=== PATIENT | female | born 1960 | race Caucasian/White ===

== ENCOUNTER 2019-12-20 17:58 | Inpatient (IN) | payer BC ==
--- OUTSIDE RECORDS SUMMARY | 2019-12-20 18:02 | XMS REPORT ---
:1960 Author Organization [employer]Works Care Team Providers Name Role Phone Coffey, Na Provider Role Unavailable Allergies No Known Allergies Problems Problem Type Condition Code Onset Dates Condition Statu s Problem Acute bronchitis J20.9 Active Problem Annual physical exam Z00.00 Active Problem Allergic rhinitis J30.9 Active Problem Seasonal allergic rhinitis due to J30.1 Active pollen Problem Actinic keratosis L57.0 Active Problem Fatigue, unspecified type R53.83 Ac tive Medications No Known Medications Results No Known Results Summary Purpose eClinicalWorks Submission
--- OUTSIDE RECORDS SUMMARY | 2019-12-20 18:03 | XMS REPORT ---
:1960 Author Organization [employer] Care Team Providers Name Role Phone Coffey, Na Provider Role Unavailable Allergies No Known Allergies Problems Problem Type Condition Code Onset Dates Condition Statu s Problem Allergic rhinitis J30.9 Active Problem Acute bronchitis J20.9 Active Problem Non-seasonal allergic rhinitis, J30.89 Active unspecified trigger Problem Fatigue, unspecified type R53.83 Ac tive Problem Seasonal allergic rhinitis due to J30.1 Active pollen Problem Annual physical exam Z00.00 Active Problem Actinic keratosis L57.0 Active Medications No Known Medications Results No Known Results Summary Purpose eClinicalWorks Submission
--- OUTSIDE RECORDS SUMMARY | 2019-12-20 18:03 | XMS REPORT ---
:1960 Author Organization [employer] Care Team Providers Name Role Phone Coffey, Na Provider Role Unavailable Allergies, Adverse Reactions, Alerts Substance Reaction Event Type codeine Info Not Available Drug Allergy PCN Info Not Available Drug Allergy Problems Problem Type Condition Code Onset Dates Condition Statu s Assessment Fatigue, unspecified type R53.83 Ac tive Assessment Annual physical exam Z00.00 Active Assessment Non-seasonal allergic rhinitis, J30.89 Active unspecified trigger Problem Allergic rhinitis J30.9 Active Problem Acute bronchitis J20.9 Active Problem Non-seasonal allergic rhinitis, J30.89 Active unspecified trigger Problem Fatigue, unspecified type R53.83 Ac tive Problem Seasonal allergic rhinitis due to J30.1 Active pollen Problem Annual physical exam Z00.00 Active Problem Actinic keratosis L57.0 Active Medications Medication Code Code Instructions Start End Status Dosage System Date Date Medrol [facility] 87370089264 4 MG Orally Active 1 tablet with food or milk in the morning Multivitamin [facility] [address] Active not Adults 50+ defined Vitamin C [facility] [address]-84 Active not defined Vitamin D [facility] [address]-73 Active not defined Resveratrol ND 71021159660 - Orally Active as Ultra directed Flonase ND 35180076478 50 MCG/ACT Active 1 spray i n Nasally Once a each day nostril Biotin [facility] [address]45-[address]248 Active not defined Restasis [facility] [address]-32 Active not defined Naproxen ND 10421820650 500 MG Orally Active 1 tab let every 12 hrs with food or milk as needed Vitamin B12 [facility] 27389-[address]75 Active not defined Lysine [facility] [address]-64 Active not defined Ubiquinol [facility] [address]-21 Active not defined Citracal Plus [facility] 47[address] Active not defined Benzonatate ND 14838843052 200 MG Orally Jul 12, Active 1 capsule Three times a 2017 Claritin [facility] 74621491913 5 MG Orally Active 1 table t twice daily Fish Oil [facility] 96567277636 1000 MG Orally Active 1 ca psule Once a day Results No Known Results Summary Purpose eClinicalWorks Submission
--- NOTE | 2019-12-20 19:55 | EDPHYS ---
Physician Documentation [facility] Name: Ruth Ann Steve Age: 59 yrs Sex: Female : 1960 Arrival Date: 12/20/2019 Time: 18:00 Bed 16 Private MD: Chantel Coffey ED Physician Jimmy Nunez HPI: 12/19 19:06 This 59 yrs old Female presents to ER via Ambulatory with complaints of klaus Breast Problem. 19:06 The patient presents with an abscess of the left breast. Description: The affected area klaus is moderate sized, localized, erythematous. Onset: The symptoms/episode began/occurred 2 day(s) ago. Associated signs and symptoms: The patient has no apparent associated signs or symptoms. Modifying factors: the symptoms are alleviated by nothing, the symptoms are aggravated by nothing. Severity of symptoms: At their worst the symptoms were moderate, in the emergency department the symptoms are unchanged. The patient has not experienced similar symptoms in the past. Historical: - Allergies: 18:17 PENICILLINS; ll1 - PMHx: 18:17 gastritis; ll1 - PSHx: 18:17 neck surgery C6-C7; ll1 - Immunization history:: Adult Immunizations up to date. - Social history:: Smoking status: Patient denies any tobacco usage or history of. Patient uses alcohol, weekly. Patient/guardian denies using street drugs. - Family history:: not pertinent. ROS: 19:06 Constitutional: Negative for fever, chills, and weight loss, Eyes: Negative for injury, klaus pain, redness, and discharge, ENT: Negative for injury, pain, and discharge, Neck: Negative for injury, pain, and swelling, Cardiovascular: Negative for chest pain, palpitations, and edema, Respiratory: Negative for shortness of breath, cough, wheezing, and pleuritic chest pain, Abdomen/GI: Negative for abdominal pain, nausea, vomiting, diarrhea, and constipation, Back: Negative for injury and pain, : Negative for injury, bleeding, discharge, and swelling, MS/Extremity: Negative for injury and deformity, Neuro: Negative for headache, weakness, numbness, tingling, and seizure, Psych: Negative for depression, anxiety, suicide ideation, homicidal ideation, and hallucinations, Allergy/Immunology: Negative for hives, rash, and allergies, Endocrine: Negative for neck swelling, polydipsia, polyuria, polyphagia, and marked weight changes, Hematologic/Lymphatic: Negative for swollen nodes, abnormal bleeding, and unusual bruising. 19:06 Skin: Positive for erythema, swelling, of the left breast. Exam: 19:08 Constitutional: This is a well developed, well nourished patient who is awake, alert, klaus and in no acute distress. Head/Face: Normocephalic, atraumatic. Eyes: Pupils equal round and reactive to light, extra-ocular motions intact. Lids and lashes normal. Conjunctiva and sclera are non-icteric and not injected. Cornea within normal limits. Periorbital areas with no swelling, redness, or edema. ENT: Nares patent. No nasal discharge, no septal abnormalities noted. Tympanic membranes are normal and external auditory canals are clear. Oropharynx with no redness, swelling, or masses, exudates, or evidence of obstruction, uvula midline. Mucous membranes moist. Neck: Trachea midline, no thyromegaly or masses palpated, and no cervical lymphadenopathy. Supple, full range of motion without nuchal rigidity, or vertebral point tenderness. No Meningismus. Cardiovascular: Regular rate and rhythm with a normal S1 and S2. No gallops, murmurs, or rubs. Normal PMI, no JVD. No pulse deficits. Respiratory: Lungs have equal breath sounds bilaterally, clear to auscultation and percussion. No rales, rhonchi or wheezes noted. No increased work of breathing, no retractions or nasal flaring. Abdomen/GI: Soft, non-tender, with normal bowel sounds. No distension or tympany. No guarding or rebound. No evidence of tenderness throughout. Back: No spinal tenderness. No costovertebral tenderness. Full range of motion. Skin: Warm, dry with normal turgor. Normal color with no rashes, no lesions, and no evidence of cellulitis. MS/ Extremity: Pulses equal, no cyanosis. Neurovascular intact. Full, normal range of motion. Neuro: Awake and alert, GCS 15, oriented to person, place, time, and situation. Cranial nerves II-XII grossly intact. Motor strength 5/5 in all extremities. Sensory grossly intact. Cerebellar exam normal. Normal gait. Psych: Awake, alert, with orientation to person, place and time. Behavior, mood, and affect are within normal limits. 19:08 Chest/axilla: Inspection: abscess, cellulitis, of the left breast Palpation: tenderness, Axilla: are normal, Breasts: abscess, that is moderate-sized, cellulitis, that is moderate, nipple discharge, is not appreciated, rash, is not appreciated, swelling, of the left breast. Vital Signs: 18:15 BP 130 / 78; Pulse 88; Resp 17; Temp 98.4; Pulse Ox 98% ; Pain 5/10; ll1 MDM: 18:06 Patient medically screened. [facility] 19:10 Differential diagnosis: abscess, cellulitis. Data reviewed: vital signs, nurses notes, [facility] lab test result(s), radiologic studies, plain films. Data interpreted: waterproofer: not applicable for this patient encounter. Pulse oximetry: on room air is 98 %. Test interpretation: by ED physician or midlevel provider: plain radiologic studies. Counseling: I had a detailed discussion with the patient and/or guardian regarding: the historical points, exam findings, and any diagnostic results supporting the discharge/admit diagnosis, lab results, the need for further work-up and treatment in the hospital. Physician consultation: Donald Fuller MD left breast cellulitis, abscess, will see in am, npo after midnight. 19:55 ED course: labs reviewed, dw dr hoffman and dr fuller, will admit to obs, dr carr with plan.[facility] 12/19 19:05 Order name: CBC with Diff; Complete Time: 20:11 [facility] 12/19 19:05 Order name: Comprehensive Metabolic Panel; Complete Time: 20:26 [facility] 12/19 20:23 Order name: Basic Metabolic Panel [facility] 12/19 20:23 Order name: Basic Metabolic Panel [facility] 12/19 20:23 Order name: CBC with Automated Diff [facility] 12/19 20:23 Order name: CBC with Automated Diff [facility] 12/19 19:05 Order name: Chest Single View XRAY; Complete Time: 20:11 [facility] 12/19 19:27 Order name: BREAST/AXILLA, COMPLETE [facility] 12/19 20:23 Order name: CONS Pharmacy Consult [facility] 12/19 20:23 Order name: CONS Pharmacy Consult [facility]ME 12/19 20:23 Order name: CONS Physician Consult [facility] 12/19 20:23 Order name: Heart Healthy EDME Administered Medications: 20:27 Drug: Zofran (Ondansetron) 4 mg Route: IVP; Site: right antecubital; vc 21:00 Follow up: Response: No adverse reaction vc 20:29 Drug: morphine 2 mg Route: IVP; Site: right antecubital; vc 20:35 Drug: Rocephin 1 grams Route: IV; Rate: per protocol; Site: right antecubital; vc 20:40 Drug: NS 0.9% 1000 ml Route: IV; Rate: 1 bolus; Site: right antecubital; vc 21:40 Follow up: IV Status: Completed infusion; IV Intake: 1000ml vc 20:41 Drug: Clindamycin 900 mg Route: IVPB; Infused Over: 30 mins; Site: right antecubital; vc Disposition: 12/20/19 19:55 Hospitalization ordered by Kristian Hoffman for Observation. Preliminary diagnosis is Cellulitis and acute lymphangitis of trunk - left breast abscess, cellulitis. - Bed requested for Telemetry/MedSurg (observation). - Status is Observation. vc - Condition is Stable. - Problem is new. - Symptoms have improved. Signatures: Dispatcher [employer] EDME Vernell Orozco RN RN mw Anderson, Corey, MD MD cha Therrien, Shelly, GRAVURE PRINTING MACHINIST-C GRAVURE PRINTING MACHINIST-Csnw Alice Mcfarland RN RN vc Lewis, Lynsay, RN RN ll1 Corrections: (The following items were deleted from the chart) 19:27 19:05 Extrmty [employer]+US.RAD.BRZ ordered. EDME EDMS 20:56 19:55 Hospitalization Ordered by Kristian Hoffman MD for Observation. Preliminary mw diagnosis is Cellulitis and acute lymphangitis of trunk - left breast abscess, cellulitis. Bed requested for Telemetry/MedSurg (observation). Status is Observation. Condition is Stable. Problem is new. Symptoms have improved. klaus 22:44 20:56 12/20/2019 19:55 Hospitalization Ordered by Kristian Hoffman MD for Observation. vc Preliminary diagnosis is Cellulitis and acute lymphangitis of trunk - left breast abscess, cellulitis. Bed requested for Telemetry/MedSurg (observation). Status is Observation. Condition is Stable. Problem is new. Symptoms have improved. mw
--- NOTE | 2019-12-20 19:55 | ER ---
Nurse's Notes [facility] Name: Ruth Ann Steve Age: 59 yrs Sex: Female : 1960 Arrival Date: 12/20/2019 Time: 18:00 Bed 16 Private MD: Chantel Coffey Diagnosis: Cellulitis and acute lymphangitis of trunk-left breast abscess, cellulitis Presentation: 12/19 18:15 Chief complaint: Patient states: Left breast pain, swelling, redness, and tenderness ll1 since last night. No known fever. Coronavirus screen: Proceed with normal triage. Patient denies a cough. Patient denies shortness of breath or difficulty breathing. Patient denies measured and/or subjective temperature greater than 100.4F prior to today's visit. Patient denies travel on a cruise ship or to a country the [facility] currently lists as an affected area. Patient denies contact with known and/or suspected case of COVID-19. Ebola Screen: Patient denies travel to an Ebola-affected area in the 21 days before illness onset. Initial Sepsis Screen: Does the patient meet any 2 criteria? No. Patient's initial sepsis screen is negative. Does the patient have a suspected source of infection? No. Patient's initial sepsis screen is negative. Risk Assessment: Do you want to hurt yourself or someone else? Patient reports no desire to harm self or others. Onset of symptoms was December 19, 2019. 18:15 Method Of Arrival: Ambulatory ll1 18:15 Acuity: MARLEE 3 ll1 Triage Assessment: 18:30 General: Appears in no apparent distress. Behavior is calm, cooperative, appropriate vc for age. Pain: Complains of pain in left breast. Historical: - Allergies: 18:17 PENICILLINS; ll1 - PMHx: 18:17 gastritis; ll1 - PSHx: 18:17 neck surgery C6-C7; ll1 - Immunization history:: Adult Immunizations up to date. - Social history:: Smoking status: Patient denies any tobacco usage or history of. Patient uses alcohol, weekly. Patient/guardian denies using street drugs. - Family history:: not pertinent. Screenin:30 Abuse screen: Denies threats or abuse. Nutritional screening: No deficits noted. vc Tuberculosis screening: No symptoms or risk factors identified. Fall Risk None identified. Assessment: 18:30 General: Appears in no apparent distress. uncomfortable, Behavior is calm, cooperative, vc appropriate for age. Pain: Complains of pain in left breast. Neuro: Level of Consciousness is awake, alert, obeys commands, Oriented to person, place, time, situation, Appropriate for age. Cardiovascular: Patient's skin is warm and dry. Respiratory: Airway is patent Respiratory effort is even, unlabored, Respiratory pattern is regular, symmetrical. GI: No signs and/or symptoms were reported involving the gastrointestinal system. : No signs and/or symptoms were reported regarding the genitourinary system. Derm: Skin temperature is warm. Musculoskeletal: Circulation, motion, and sensation intact. Range of motion: intact in all extremities. 19:00 Reassessment: Patient appears in no apparent distress at this time. Patient and/or vc family updated on plan of care and expected duration. Pain level reassessed. 20:00 Reassessment: Patient appears in no apparent distress at this time. Patient and/or vc family updated on plan of care and expected duration. Pain level reassessed. Patient is alert, oriented x 3, equal unlabored respirations, skin warm/dry/pink. 21:00 Reassessment: Patient appears in no apparent distress at this time. Patient and/or vc family updated on plan of care and expected duration. Pain level reassessed. Patient is alert, oriented x 3, equal unlabored respirations, skin warm/dry/pink. Patient states feeling better. 22:00 Reassessment: Patient appears in no apparent distress at this time. Patient and/or vc family updated on plan of care and expected duration. Pain level reassessed. Patient is alert, oriented x 3, equal unlabored respirations, skin warm/dry/pink. Patient states feeling better. Patient states symptoms have improved. Vital Signs: 18:15 BP 130 / 78; Pulse 88; Resp 17; Temp 98.4; Pulse Ox 98% ; Pain 5/10; ll1 ED Course: 18:00 Patient arrived in ED. am2 18:00 Chantel Coffey MD is Private Physician. am2 18:06 Jimmy Nunez MD is Attending Physician. klaus 18:16 Triage completed. ll1 18:17 Arm band placed on Patient placed in an exam room, on a stretcher. ll1 18:30 Patient has correct armband on for positive identification. Placed in gown. Bed in low vc position. Call light in reach. Side rails up X2. Pulse ox on. NIBP on. 18:31 Alice cMfarland, RN is Primary Nurse. vc 19:27 Chest Single View XRAY In Process Unspecified. EDMS 19:49 Kristian Ho MD is Hospitalizing Provider. [facility] 19:55 Inserted saline lock: 20 gauge in right antecubital area, using aseptic technique. ll1 Blood collected. 20:28 Ultrasound completed. Patient tolerated well. sg3 20:29 BREAST/AXILLA, COMPLETE In Process Unspecified. EDMS 22:40 No provider procedures requiring assistance completed. Patient admitted, IV remains in vc place. Administered Medications: 20:27 Drug: Zofran (Ondansetron) 4 mg Route: IVP; Site: right antecubital; vc 21:00 Follow up: Response: No adverse reaction vc 20:29 Drug: morphine 2 mg Route: IVP; Site: right antecubital; vc 20:35 Drug: Rocephin 1 grams Route: IV; Rate: per protocol; Site: right antecubital; vc 20:40 Drug: NS 0.9% 1000 ml Route: IV; Rate: 1 bolus; Site: right antecubital; vc 21:40 Follow up: IV Status: Completed infusion; IV Intake: 1000ml vc 20:41 Drug: Clindamycin 900 mg Route: IVPB; Infused Over: 30 mins; Site: right antecubital; vc Intake: 21:40 IV: 1000ml; Total: 1000ml. vc Outcome: 19:55 Decision to Hospitalize by Provider. [facility] 22:40 Admitted to Med/surg accompanied by tech, via stretcher, room 224, with chart, Report vc called to Jeri Doherty RN 22:40 Condition: good 22:40 Instructed on the need for admit. 22:44 Patient left the ED. vc Signatures: Dispatcher [employer] EDMS Jimmy Nunez MD MD cha Moreno, Amanda am2 Coretta López sg3 Alice Mcfarland, RN RN vc Guerita Meraz RN RN ll1
[2019-12-20 20:04] LABS: Absolute Lymphocytes (CBC) 1.7 K/uL (0.7-4.9); Basophils % 0.7 % (0-1.3); Hematocrit 43.5 % (36.0-45.0); Lymphocytes % 20.6 % (15.3-44.8); MPV 8.9 fL (7.6-11.3)
--- NOTE | 2019-12-20 20:05 | RAD REPORT ---
EXAM DESCRIPTION: RAD - Chest Single View - 12/20/2019 7:27 pm CLINICAL HISTORY: SWELLING, left-sided chest and breast pain COMPARISON: None TECHNIQUE: AP portable chest image was obtained 12/20/2019 7:27 pm . FINDINGS: Lungs are clear. Heart and vasculature are normal. No measurable pleural effusion and no p neumothorax. No acute bony abnormality seen. No acute aortic findings suspected. IMPRESSION: No acute cardiopulmonary process.
[2019-12-20] MEDS ORDERED: MORPHINE 2 MG/ML SYR ONE (20:11)
[2019-12-20] MEDS ORDERED: NA CHLORIDE 0.9% 1,000 ML ONE (20:11)
[2019-12-20] MEDS ORDERED: ONDANSETRON 4 MG/2 ML VIAL ONE (20:11)
[2019-12-20] MEDS ORDERED: CLINDAMYCIN 900MG/D5W 900 MG/50 ML IVPB IV ONE (20:12)
[2019-12-20] MEDS ORDERED: CEFTRIAXONE/SWI 1gm 1 GM/10 ML SYR ONE (20:12)
[2019-12-20] MEDS ORDERED: ACETAMINOPHEN 500 MG TAB PO PRN (20:20)
[2019-12-20] MEDS ORDERED: ONDANSETRON 4 MG/2 ML VIAL IV PRN (20:20)
[2019-12-20 20:22] LABS: Bilirubin Total 0.4 mg/dL (0.2-1.0); Potassium 3.5 mmol/L (3.5-5.1); Protein, Total 7.9 g/dL (6.4-8.2)
[2019-12-20] MEDS ORDERED: VANCOMYCIN/NS 1 gm 1 GM/250 ML BAG IVPB SCH (20:30)
--- NOTE | 2019-12-20 21:04 | RAD REPORT ---
EXAM DESCRIPTION: US - BREAST/AXILLA, COMPLETE - 12/20/2019 8:28 pm CLINICAL HISTORY: Left breast pain COMPARISON: None FINDINGS: Retroareolar and four-quadrant left breast sonography performed. Tissues are edematous. Mi ldly prominent ducts are seen. A 4-5 mm anechoic to hypoechoic focus is present 1- 2 o'clock region o f the left breast. A 6 millimeter hypoechoic focus is present 8 o'clock left breast. A 10 mm hypoecho ic focus is present in the 5 o'clock left breast. These are nonspecific and may be simple or minimall y complex cysts. Abscess not suspected. Malignant process not suspected. IMPRESSION: Small hypoechoic wrist masses as detailed. Simple or minimal complex cyst etiology favor ed. No abscess or aggressive process seen.
[2019-12-21] MEDS ORDERED: PIPER/TAZO/NS 3.375gm 3.375 GM/100 ML BAG IVPB SCH
[2019-12-21] MEDS ORDERED: NA CHLORIDE 0.9% 250 ML ONE (00:26)
[2019-12-21] MEDS: NA CHLORIDE 0.9% 1,000 ML IV SCH ×2 (00:26→10:20)
[2019-12-21 00:58] VITALS: BMI 25.5
[2019-12-21] MEDS ORDERED: VANCOMYCIN 1 GM/VIAL ONE ×2 (01:05→01:16)
[2019-12-21] MEDS: MORPHINE 4 MG/ML SYR IV PRN ×2 (05:21→11:37)
[2019-12-21 06:34] LABS: Absolute Lymphocytes (CBC) 1.8 K/uL (0.7-4.9); Basophils % 0.8 % (0-1.3); Hematocrit 37.9 % (36.0-45.0); Lymphocytes % 31.1 % (15.3-44.8); MPV 9.7 fL (7.6-11.3); RBC Red Blood Cell Count 4.08 M/uL (3.86-4.86)
[2019-12-21 06:40] LABS: BUN Blood Urea Nitrogen 12 mg/dL (7-18); Bicarbonate 24 mmol/L (21-32); Glucose Level 91 mg/dL (74-106); Potassium 3.5 mmol/L (3.5-5.1); Sodium Level 142 mmol/L (136-145)
--- NOTE | 2019-12-21 08:53 | P.HP ---
Certification for Inpatient Patient admitted to: Inpatient With expected LOS: >2 Midnights Patient will require the following post-hospital care: None Practitioner: I am a practitioner with admitting privileges, knowledge of patient current condition, hospital course, and medical plan of care. Services: Services provided to patient in accordance with Admission requirements found in Title 42 Section 412.3 of the Code of Federal Regulations Patient History Date of Service: 12/20/19 Reason for admission: Breast cellulitis/abscess History of Present Illness: Patient is a 59-year-old female came to the hospital with erythema of the breast. Patient has a tenderness in some warmth to the left breast for the last couple of days. She denies any injury. It became redder so she got concerned so came into the hospital for evaluation. In the emergency room she had an ultrasound which revealed a possible hypoechoic mass. It was felt to be more of a cystic lesion. It was decided to admit the patient to the hospital for further evaluation. Patient is felt to have a mastitis. She will need IV antibiotics for 24 hr. If he does well will switch her over to oral antibiotics and discharge home if surgery is agreeable Allergies Penicillins Allergy (Verified 12/20/19 23:21) Hives/Rash Home Medications: Biotin [Nail-Ex] 2,500 mcg PO DAILY 12/21/19 Cyanocobalamin (Vitamin B-12) [B-12] 1 tab PO BID 12/21/19 Cyclosporine [Restasis] 1 drop EACH EYE BID 12/21/19 Famotidine 40 mg PO BEDTIME 12/21/19 Glucosamine/Chondr Rice A Sod [Osteo Bi-Flex Caplet] 1 tab PO BID 12/21/19 Levocetirizine Dihydrochloride [Xyzal] 5 mg PO BID 12/21/19 Lysine 500 mg PO DAILY 12/21/19 Olopatadine [Patanol Opth*] 1 drop EACH EYE PRN 12/21/19 Pantothenic Acid (Vit B5) [Pantothenic Acid] 500 mg PO DAILY 12/21/19 Ubidecarenone [Co Q-10] 100 mg PO DAILY 12/21/19 - Past Medical/Surgical History Has patient received pneumonia vaccine in the past: No Diabetic: No -: gastritis -: neck surgery c6-c7 - Family History Father Medical History: Hypertension Mother Medical History: Heart disease, Hypertension, Cancer - Social History Smoking Status: Never smoker Alcohol use: Yes CD- Drugs: No Caffeine use: Yes Place of Residence: Home Review of Systems 10-point ROS is otherwise unremarkable Physical Examination - Vital Signs Temperature: 98.4 F Blood Pressure: 116/63 Pulse: 72 Respirations: 17 Pulse Ox (%): 98 - Physical Exam General: Alert, In no apparent distress, Oriented x3 HEENT: Atraumatic, PERRLA, Mucous membr. moist/pink, EOMI, Sclerae nonicteric Neck: Supple, 2+ carotid pulse no bruit, No LAD, Without JVD or thyroid abnormality Respiratory: Clear to auscultation bilaterally, Normal air movement Cardiovascular: Regular rate/rhythm, Normal S1 S2, No murmurs Gastrointestinal: Normal bowel sounds, Soft and benign, Non-distended, No tenderness Musculoskeletal: No clubbing, No swelling, No tenderness Integumentary: No rashes Neurological: Normal gait, Normal speech, Normal strength at 5/5 x4 extr, Normal tone, Sensation intact, Cranial nerves 3-12 intact, Normal affect Lymphatics: No axilla or inguinal lymphadenopathy - Studies Laboratory Data (last 24 hrs) 12/20/19 19:50: Sodium 143, Potassium 3.5, BUN 22 H, Creatinine 0.68, Glucose 99, Total Bilirubin 0.4, AST 17, ALT 34, Alkaline Phosphatase 124 H 12/20/19 19:50: WBC 8.0, Hgb 14.4, Hct 43.5, Plt Count 258 Female Exam - Breasts Breasts: Other (Erythema, pain, tenderness of the left breast around the areola) Assessment & Plan - Problems (Diagnosis) (1) Mastitis Current Visit: Yes Status: Acute - Plan 1. Continue with IV antibiotic 2. Monitor labs closely 3. Surgical consultation 4. Gentle IV hydration 5. Strict blood sugar monitoring 6. Pain control 7. GI and DVT prophylaxis Discharge Plan: Home Plan to discharge in: 48 Hours - Advance Directives Does patient have a Living Will: No Does patient have a Durable POA for Healthcare: No - Code Status/Comfort Care Code Status Assessed: Yes Code Status: Full Code Critical Care: No Time Spent Managing PTS Care (In Minutes): 45
--- NOTE | 2019-12-21 08:56 | P.PN ---
Subjective Date of Service: 12/21/19 Subjective: Improving (Patient is continuing to improve with no new complaints.) Review of Systems 10-point ROS is otherwise unremarkable Physical Examination - Vital Signs Temperature: 98.4 F Blood Pressure: 116/63 Pulse: 72 Respirations: 17 Pulse Ox (%): 98 - Physical Exam General: Alert, In no apparent distress, Oriented x3 Respiratory: Clear to auscultation bilaterally, Normal air movement Cardiovascular: Regular rate/rhythm, Normal S1 S2, No murmurs Gastrointestinal: Normal bowel sounds, Soft and benign, Non-distended, No tenderness Musculoskeletal: No clubbing, No swelling, No tenderness Integumentary: Erythema, Warmth, Other (Left breast with erythema and warmth) Lymphatics: No axilla or inguinal lymphadenopathy - Studies Laboratory Data (last 24 hrs) 12/20/19 19:50: Sodium 143, Potassium 3.5, BUN 22 H, Creatinine 0.68, Glucose 99, Total Bilirubin 0.4, AST 17, ALT 34, Alkaline Phosphatase 124 H 12/20/19 19:50: WBC 8.0, Hgb 14.4, Hct 43.5, Plt Count 258 Medications List Reviewed: Yes Assessment & Plan - Problems (Diagnosis) (1) Mastitis Current Visit: Yes Status: Acute - Plan Continue with current plan of care as mentioned below 1. Continue with IV antibiotic 2. Monitor labs closely 3. Surgical consultation pending 4. Continue with IV hydration 5. Strict blood sugar monitoring 6. Pain control 7. GI and DVT prophylaxis Discharge Plan: Home Plan to discharge in: 24 Hours - Advance Directives Does patient have a Living Will: No Does patient have a Durable POA for Healthcare: No - Code Status/Comfort Care Code Status: Full Code Critical Care: No Time Spent Managing PTS Care (In Minutes): 30
[2019-12-21 10:38] VITALS: O2SAT 99
[2019-12-21] MEDS ORDERED: OLOPATADINE EACH EYE SCH (12:15)
--- NOTE | 2019-12-21 12:18 | P.DS ---
Admission Date: 12/20/19 Discharge Date: 12/21/19 Primary Care Provider: Dr. Coffey Disposition: ROUTINE DISCHARGE Discharge Condition: GOOD Reason for Admission: Breast cellulitis/abscess Consultations: Surgery-Dr. Espinoza Procedures: Breast US: CLINICAL HISTORY: Left breast pain COMPARISON: None FINDINGS: Retroareolar and four-quadrant left breast sonography performed. Tissues are edematous. Mildly prominent ducts are seen. A 4-5 mm anechoic to hypoechoic focus is present 1- 2 o'clock region of the left breast. A 6 millimeter hypoechoic focus is present 8 o'clock left breast. A 10 mm hypoechoic focus is present in the 5 o'clock left breast. These are nonspecific and may be simple or minimally complex cysts. Abscess not suspected. Malignant process not suspected. IMPRESSION: Small hypoechoic wrist masses as detailed. Simple or minimal complex cyst etiology favored. No abscess or aggressive process seen. CXR: FINDINGS: Lungs are clear. Heart and vasculature are normal. No measurable pleural effusion and no pneumothorax. No acute bony abnormality seen. No acute aortic findings suspected. IMPRESSION: No acute cardiopulmonary process. Medical Problem List: Left breast cellulitis/mastitis with possible underlying fibrocystic changes Brief History of Present Illness: 59-year-old female presented to the emergency room with left breast tenderness and erythema. Patient was admitted for further evaluation and treatment. Hospital Course: Patient presented with left breast tenderness and erythema. Patient was admitted for further evaluation and treatment. Patient started on IV antibiotic therapy. Breast ultrasound showed: Edematous tissues/Mild prominent ducts noted/4 x 5 mm anechoic to hypoechoic is present 1-2 o'clock region of the left breast/6 mm hypoechoic focus is present at 8 o'clock left breast/10 mm h ypoechoic focus present at 5 o'clock left breast. Radiology mentioned that these were nonspecific and may be simple or minimally complex cyst. No abscess was also suspected. Malignant process also not suspected. Patient was seen and evaluated by surgery. No surgical intervention was required at this time. Patient without significant pain. Erythema, pain improved at discharge. Surgery recommends discharge and close follow up. Surgery also recommends to continue antibiotic treatment. At discharge patient will continue with Bactrim DS 1 pill twice daily for 7 days. Patient will apply Bactroban ointment to the area of the breast twice daily. Recommend follow up with surgery within 1 week to follow up this hospitalization and continue care. Patient will require diagnostic mammogram as an outpatient for follow up. This can be done with the help of surgery. 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 Minimal erythema to the nipple region. Some tenderness and inflammation noted to the breast at the 3 o'clock position. No axilla lymphadenopathy noted.) Neurological: Normal speech, Normal strength at 5/5 x4 extr, Normal tone Lymphatics: No axilla or inguinal lymphadenopathy Laboratory Data at Discharge: WBC 5.8 K/uL (4.3-10.9) D 12/21/19 05:27 Hgb 12.6 g/dL (12.0-15.0) 12/21/19 05:27 Hct 37.9 % (36.0-45.0) 12/21/19 05:27 Plt Count 205 K/uL (152-406) D 12/21/19 05:27 Sodium 142 mmol/L (136-145) 12/21/19 05:27 Potassium 3.5 mmol/L (3.5-5.1) 12/21/19 05:27 BUN 12 mg/dL (7-18) 12/21/19 05:27 Creatinine 0.57 mg/dL (0.55-1.3) 12/21/19 05:27 Glucose 91 mg/dL (74-106) 12/21/19 05:27 Total Bilirubin 0.4 mg/dL (0.2-1.0) 12/20/19 19:50 AST 17 U/L (15-37) 12/20/19 19:50 ALT 34 U/L (12-78) 12/20/19 19:50 Alkaline Phosphatase 124 U/L (45-117) H 12/20/19 19:50 Home Medications: Biotin [Nail-Ex] 2,500 mcg PO DAILY 12/21/19 Cyanocobalamin (Vitamin B-12) [B-12] 1 tab PO BID 12/21/19 Cyclosporine [Restasis] 1 drop EACH EYE BID 12/21/19 Famotidine 40 mg PO BEDTIME 12/21/19 Glucosamine/Chondr Rice A Sod [Osteo Bi-Flex Caplet] 1 tab PO BID 12/21/19 Levocetirizine Dihydrochloride [Xyzal] 5 mg PO BID 12/21/19 Lysine 500 mg PO DAILY 12/21/19 Mupirocin Oint [Bactroban 2% Ointment*] 1 appl TOP BID #1 tube 12/21/19 Olopatadine [Patanol Opth*] 1 drop EACH EYE PRN 12/21/19 Pantothenic Acid (Vit B5) [Pantothenic Acid] 500 mg PO DAILY 12/21/19 Smz./Tmp. [Bactrim Ds 800 MG/160 MG*] 1 tab PO BID #14 tab 12/21/19 Ubidecarenone [Co Q-10] 100 mg PO DAILY 12/21/19 New Medications: Smz./Tmp. [Bactrim Ds 800 MG/160 MG*] 1 tab PO BID #14 tab Mupirocin Oint [Bactroban 2% Ointment*] 1 appl TOP BID #1 tube Patient Discharge Instructions: 1. Follow up with PCP in 1-2 weeks. 2. Patient presented with left breast tenderness and erythema. Patient was admitted for further evaluation and treatment. Patient started on IV antibiotic therapy. Breast ultrasound showed: Edematous tissues/Mild prominent ducts noted/4 x 5 mm anechoic to hypoechoic is present 1-2 o'clock region of the left breast/6 mm hypoechoic focus is present at 8 o'clock left breast/10 mm hypoechoic focus present at 5 o'clock left breast. Radiology mentioned that these were nonspecific and may be simple or minimally complex cyst. No abscess was also suspected. Malignant process also not suspected. Patient was seen and evaluated by surgery. No surgical intervention was required at this time. Patient without significant pain. Erythema, pain improved at discharge. Surgery recommends discharge and close follow up. Surgery also recommends to continue antibiotic treatment. At discharge patient will continue with Bactrim DS 1 pill twice daily for 7 days. Patient will apply Bactroban ointment to the area of the breast twice daily. Recommend follow up with surgery within 1 week to follow up this hospitalization and continue care. Patient will require diagnostic mammogram as an outpatient for follow up. This can be done with the help of surgery. Diet: AHA Activity: Ad quincy Time spent managing pt's care (in minutes): 55
[2019-12-21] MEDS ORDERED: CETIRIZINE HCL 5 MG TABLET PO SCH (12:45)
[2019-12-21] MEDS ORDERED: SMZ./TMP. 800/160 MG TABLET PO SCH ×2 (13:00→21:00)
[2019-12-21] MEDS ORDERED: VANCOMYCIN 1.25 GM in NA CHLORIDE 0.9% 250 ML IVPB SCH (13:00)
[2019-12-21] MEDS ORDERED: CYANOCOBALAMIN 1,000 MCG TAB PO SCH (13:00)
--- NOTE | 2019-12-21 14:11 | CON ---
Date of Consultation: 12/21/2019 Brief History Of Present Illness: Patient is a 59-year-old female with a history of breast surgery on her left breast at the infra-areolar nipple-areolar complex for a benign cyst multiple ye ars ago. She cannot recall the details of which or the pathology at that point, but simply remembers it to be benign. She had some tenderness and warmth of the left breast for the last several days as sociated with some redness. She states that they got progressively worse and she came to the [facility] for evaluation. She had a mammogram by report earlier and this year around June which was nega tive by her report other than having dense breasts, but the report is unavailable I should say for my review at this point. She has never had any episodes of breast cancer, but as stated above, she did have a breast biopsy years ago, which by her report was benign. She has had no nipple discharge. N o lymphadenopathy. No other systemic complaints. Past Medical History: Significant for gastritis. She has had C6-C7 neck surgery, breast biopsy. Allergies: PENICILLIN. Home Medications: Include biotin, B12, Restasis, famotidine, Osteo Bi-Flex, Xyzal, Lysine, Patanol, acid, coenzyme Q10. Social History: She denies smoking. She drinks alcohol recreationally. Denies recreational drug us e. Review of Systems: Ten-point review of systems other than HPI, denies. Physical Examination: Vital Signs: At time of examination, her BMI is 25.5, 5 feet 7 inches, 163 pounds, blood pressure 11 6/63, pulse 72, respiratory rate 18, temperature 98.4. General: She is awake, alert, oriented. Psychiatric: She is appropriate conversive. HEENT: She is normocephalic. Sclerae icteric. Mucous membranes moist. Oropharynx clear. Neck: Supple. No JVD. No lymphadenopathy. Chest: Normal expansion excursion. Breasts: Focused examination of the breast, her left breast has some tenderness, swelling and erythem atous changes to the nipple-areolar complex at the approximately 6 o'clock position extending from th e 3 o'clock position down to approximately 7 to 8 o'clock position, but most severe at the 6 o'clock position. No nipple discharge. There is a cystic component to the breast, but no drainable fluid co llections by palpation. The remainder of breast exam is essentially unremarkable and no axillary acacia nopathy. The contralateral breast appears normal appearance and has no other changes. The nipples a ppear everted and similar in appearance without any pagetoid type skin changes. Abdomen: Soft otherwise. Extremities: No clubbing, cyanosis, edema. Skin: Warm and dry. Laboratory Data: Shows a white blood count of 5.8, hemoglobin 12.6, hematocrit of 37.9, platelet cou nt is 205. Her sodium 142, potassium 3.5, chloride 112, carbon dioxide 24, BUN 12, creatinine 0.5, g lucose is 91, calcium 8.7, her alkaline phosphatase 124. On admission, she had imaging performed whi ch included an x-ray which showed no acute cardiopulmonary process. She additionally had an ultrasou nd performed in the ER, which officially read a small hypoechoic masses, detailed, has retroareolar i n 4 quadrant breasts. Left breast sonography performed, tissues are edematous. Mild prominent ducts were seen. A 4-5 mm anechoic to hypoechoic focus is present at the 1-2 o'clock region of the left b reast. A 6 mm hypoechoic focus is present at 8 o'clock left breast. A 10 mm hypoechoic focus is pre sent at the 5 o'clock left breast. These are nonspecific and may be simple or minimally complex cyst , abscess is not suspected, process is not suspected. There is no aggressive or aggressiv e process seen. Assessment And Plan: This is a 59-year-old female with mastitis/cellulitis of the left breast, possi ble fibrocystic change underlying the overall picture. However, I recommend antibiotic coverage and serial exams. The patient can be followed up with close outpatient followup to ensure resolution of these and appropriate mammogram and reimaging depending on the symptoms and clinical course. I have explained the risks, benefits, and alternatives the above stated plan. The patient agrees to proceed as indicated. HELENE/MILAN Voice ID: [id number] Report ID: [id number]
[2019-12-21] MEDS ORDERED: CHONDR SU A SOD PO SCH (21:00)
[2019-12-21] MEDS ORDERED: FAMOTIDINE 20 MG TAB PO SCH (21:00)
[2019-12-21] MEDS ORDERED: HOME MED 1 EA UNK (Cyclosporine [Restasis] 1 DROP) EACH EYE SCH (21:00)
[2019-12-21] MEDS ORDERED: HOME MED 1 EA UNK (Levocetirizine Dihydrochloride [Xyzal] 5 MG) PO SCH (21:00)
[2019-12-21] MEDS ORDERED: HOME MED 1 EA UNK (Famotidine [Famotidine] 40 MG) PO SCH (21:00)
[2019-12-21] MEDS ORDERED: GLUCOSAMINE PO SCH (21:00)
[2019-12-21] MEDS ORDERED: MUPIROCIN 2% OINT 22GM TUBE TOP SCH (21:00)
[2019-12-22 04:37] VITALS: BP 116/63; TEMP 98.4
[2019-12-22] MEDS ORDERED: HOME MED 1 EA UNK (Ubidecarenone [Co Q-10] 100 MG) PO SCH (09:00)
[2019-12-22] MEDS ORDERED: LYSINE 500 MG PO SCH (09:00)
[2019-12-22] MEDS ORDERED: BIOTIN 2500 MCG PO SCH (09:00)
[2019-12-22] MEDS ORDERED: PANTOTHENIC ACID 500 MG PO SCH (09:00)
== END 2019-12-21 13:58 | disposition home or self-care (01) | DRG 601 ==
LOC: ER 17:58 → ERHOLD 20:20 → 2ND 22:34
PROVIDERS: ADMIT Hospitalist; ATTEND Hospitalist
DX: N61.0 Mastitis without abscess (principal); N60.12 Diffuse cystic mastopathy of left breast; Z88.0 Allergy status to penicillin; Z79.899 Other long term (current) drug therapy
CPT/HCPCS: 36415; 71045; 76641; 80048; 80053; 85025; 96361; 96374; 96375; 99285; J0696; J2270; J2405; J7030

== ENCOUNTER 2022-05-28 12:01 | Emergency (ER) | payer BC, OTHER ==
[2022-05-28] MEDS ORDERED: NA CHLORIDE 0.9% 1,000 ML ONE (12:30)
[2022-05-28] MEDS ORDERED: ASPIRIN 81 MG CHEWABLE TABLET ONE (12:30)
[2022-05-28] MEDS ORDERED: ENOXAPARIN 60 MG/0.6 ML SQ ONE (12:37)
[2022-05-28] MEDS ORDERED: FAMOTIDINE 20 MG/2 ML VIAL IV ONE (12:37)
[2022-05-28] MEDS ORDERED: METOPROLOL TAR 50 MG TAB ONE (12:37)
[2022-05-28] MEDS ORDERED: METOPROLOL TARTRATE 5 MG/5 ML INJ IV ONE (12:37)
[2022-05-28 12:41] LABS: Absolute Lymphocytes (CBC) 1.7 K/uL (0.7-4.9); Hematocrit 42.7 % (36.0-45.0); Lymphocytes % 22.8 % (15.3-44.8); MCV 89.6 fL (80-100); MPV 8.9 fL (7.6-11.3); RBC Red Blood Cell Count 4.76 M/uL (3.86-4.86)
[2022-05-28 12:44] LABS: Protime INR 0.95
[2022-05-28 13:05] LABS: SARS-CoV-2 Antigen Rapid Res Negative (Negative)
[2022-05-28 13:08] LABS: Albumin 3.7 g/dL (3.4-5.0); Bilirubin Direct 0.2 mg/dL (0-0.2); Bilirubin Total 0.5 mg/dL (0.2-1.0); Magnesium 2.4 mg/dL (1.8-2.4); Potassium 3.6 mmol/L (3.5-5.1); Protein, Total 7.2 g/dL (6.4-8.2); Thyroid Stimulating Hormone 1.92 uIU/mL (0.360-3.740); Troponin High Sensitivity 7.8 pg/mL (<58.9)
--- NOTE | 2022-05-28 13:12 | RAD REPORT ---
EXAM DESCRIPTION: RAD - Chest Single View - 05/28/2022 1:00 pm CLINICAL HISTORY: CHEST PAIN COMPARISON: Chest Single View dated 12/20/2019 FINDINGS: Lines: None. Lungs: No evidence of edema or pneumonia. Pleural: No significant pleural effusions or pneumothorax. Cardiac: The heart size is within normal limits. Mediastinum: Within normal limits. Bones: No acute fractures. Other: None IMPRESSION: No acute cardiopulmonary disease.
--- NOTE | 2022-05-28 14:14 | ER ---
Nurse's Notes [facility] Name: Ruth Ann Steve Age: 62 yrs Sex: Female : 1960 Arrival Date: 05/28/2022 Time: 12:07 Bed 8 Private MD: Chantel Coffey Diagnosis: Unspecified atrial flutter;Unspecified atrial fibrillation-with rvr Presentation: 05/28 12:09 Chief complaint: Patient states: this morning i got up i felt off i feel like i have a tw2 quivery feeling inside, it comes and goes. i wear a fitbit and seeing HR go up and down. 2 or 3 days ago i had an odd feeling upper right chest for a little bit and it went away. 12:09 Method Of Arrival: Ambulatory tw2 12:09 Acuity: MARLEE 2 tw2 12:12 Coronavirus screen: At this time, the client does not indicate any symptoms associated tw2 with coronavirus-19. Ebola Screen: Patient denies travel to an Ebola-affected area in the 21 days before illness onset. Initial Sepsis Screen: Does the patient meet any 2 criteria? HR > 90 bpm. No. Patient's initial sepsis screen is negative. Does the patient have a suspected source of infection? No. Patient's initial sepsis screen is negative. Risk Assessment: Do you want to hurt yourself or someone else? Patient reports no desire to harm self or others. Onset of symptoms was May 28, 2022. Triage Assessment: 12:12 General: Appears in no apparent distress. well groomed, Behavior is calm, cooperative, tw2 appropriate for age. Pain: Denies pain. Cardiovascular: Denies irregular heart beat. Historical: - Allergies: 12:11 PENICILLINS; tw2 - Home Meds: 12:11 Restasis 0.05 % ophthalmic (eye) dpet 1 drop every 12 hours [Active]; vitamns [Active]; tw2 - PMHx: 12:11 gastritis; tw2 - PSHx: 12:11 section; tw2 - Immunization history:: Client reports receiving the Rinku \T\ Rinku single-dose vaccine. - Social history:: Smoking status: Patient denies any tobacco usage or history of. Patient uses alcohol, only on a social basis. - Family history:: not pertinent. Screenin:16 Abuse screen: Denies threats or abuse. Nutritional screening: No deficits noted. tw2 Tuberculosis screening: No symptoms or risk factors identified. Fall Risk None identified. Assessment: 12:30 General: Appears in no apparent distress. Behavior is calm, cooperative, appropriate mb8 for age. Pain: Denies pain. Cardiovascular: Reports palpitations, Denies chest pain, lightheadedness, shortness of breath, syncope, vomiting. Respiratory: Breath sounds are clear bilaterally. Denies shortness of breath. 13:50 Reassessment: Patient and/or family updated on plan of care and expected duration. Pain mb8 level reassessed. Patient is alert, oriented x 3, equal unlabored respirations, skin warm/dry/pink. Pain: Vital Signs: 12:09 BP 116 / 85; Pulse 151; Resp 17; Temp 98.4(TE); Pulse Ox 98% on R/A; Weight 72.57 kg tw2 (R); Height 5 ft. 6 in. (167.64 cm); 12:49 BP 125 / 94; Pulse 149; Resp 16; Pulse Ox 96% on R/A; Pain 0/10; mb8 12:53 Pulse 81; mb8 13:00 BP 115 / 8; Pulse 78; Resp 15; Pulse Ox 100% on R/A; Pain 0/10; mb8 13:50 BP 119 / 89; Pulse 76; Resp 14; Pulse Ox 97% on R/A; Pain 0/10; mb8 12:09 Body Mass Index 25.82 (72.57 kg, 167.64 cm) tw2 Vitals: 12:49 Cardiac Rhythm Assessment Sinus tach. mb8 12:53 Cardiac Rhythm Assessment Sinus rhythm. mb8 13:00 Cardiac Rhythm Assessment Sinus rhythm. mb8 ED Course: 12:07 Patient arrived in ED. am2 12:08 Chantel Coffey MD is Private Physician. am2 12:11 Triage completed. tw2 12:12 Arm band placed on. tw2 12:13 Placed in gown. Bed in low position. monitoring and evaluation advisor on. Pulse ox on. NIBP on. Warm tw2 blanket given. 12:14 Jimmy Nunez MD is Attending Physician. klaus 12:16 Patient maintains SpO2 saturation greater than 95% on room air. tw2 12:25 Jeff Oleary RN is Primary Nurse. mb8 12:30 Inserted saline lock: 20 gauge in left antecubital area, using aseptic technique. Blood mb8 collected. 12:51 No provider procedures requiring assistance completed. mb8 13:01 XRAY Chest (1 view) Sent. mb8 13:02 XRAY Chest (1 view) In Process Unspecified. EDMS 13:16 Warm blanket given. mb8 14:14 Chantel Coffey MD is Referral Physician. klaus 14:14 Calros Vasquez MD is Referral Physician. klaus 14:56 IV discontinued, intact, bleeding controlled, No redness/swelling at site. Pressure mb8 dressing applied. Administered Medications: 12:34 Drug: NS 0.9% 1000 ml Route: IV; Rate: 1 bolus; Site: left antecubital; aa5 13:12 Follow up: Response: No adverse reaction; IV Status: Completed infusion mb8 12:34 Drug: Aspirin 81 mg Route: PO; aa5 13:13 Follow up: Response: No adverse reaction mb8 12:42 Drug: Lopressor (metoprolol) 5 mg Route: IVP; Site: left antecubital; mb8 13:13 Follow up: Response: No adverse reaction; Cardiac rhythm changed mb8 12:45 Drug: Lopressor (metoprolol TARTRATE) 50 mg Route: PO; mb8 13:13 Follow up: Response: No adverse reaction mb8 12:45 Drug: Lovenox (enoxaparin) 1 mg/kg Route: Sub-Q; Site: right lower abdomen; mb8 13:13 Follow up: Response: No adverse reaction mb8 12:47 Drug: Pepcid (famotidine) 20 mg Route: IVP; Site: left antecubital; mb8 13:13 Follow up: Response: No adverse reaction mb8 14:55 Drug: Eliquis (apixaban) 5 mg Route: PO; mb8 14:55 Follow up: Response: Medication administered at discharge. mb8 Medication: 12:16 VIS not applicable for this client. tw2 Outcome: 14:14 Discharge ordered by . klaus 14:55 Discharged to home ambulatory, with family. mb8 14:55 Condition: stable 14:55 Discharge instructions given to patient, Instructed on discharge instructions, follow up and referral plans. medication usage, Demonstrated understanding of instructions, follow-up care, medications, Prescriptions given X 3. 14:56 Patient left the ED. mb8 Signatures: Dispatcher [employer] Jimmy Webb MD MD cha Calderon, Audri, RN RN aa5 Lily Lombardo RN RN tw2 Sunshine Goyal am2 Jeff Oleary RN RN mb8
--- NOTE | 2022-05-28 14:14 | EDPHYS ---
Physician Documentation [facility] Name: Ruth Ann Steve Age: 62 yrs Sex: Female : 1960 Arrival Date: 05/28/2022 Time: 12:07 Bed 8 Private MD: Chantel Coffey ED Physician Jimmy Nunez HPI: 05/28 14:00 This 62 yrs old Female presents to ER via Ambulatory with complaints of klaus Irregular Pulse. 14:00 The patient presents with a history of irregular heart beat, heart racing. Context: The klaus symptoms occur at rest. Onset: The symptoms/episode began/occurred this morning. Duration: The patient or guardian reports a single episode, that is still ongoing, and unchanged. Modifying factors: The symptoms are aggravated by nothing. The symptoms are alleviated by nothing. Associated signs and symptoms: The patient has no apparent associated signs or symptoms. Severity of symptoms: At their worst the symptoms were mild in the emergency department the symptoms are unchanged. The patient has not experienced similar symptoms in the past. Historical: - Allergies: 12:11 PENICILLINS; tw2 - Home Meds: 12:11 Restasis 0.05 % ophthalmic (eye) dpet 1 drop every 12 hours [Active]; vitamns [Active]; tw2 - PMHx: 12:11 gastritis; tw2 - PSHx: 12:11 section; tw2 - Immunization history:: Client reports receiving the Rinku \T\ Rinku single-dose vaccine. - Social history:: Smoking status: Patient denies any tobacco usage or history of. Patient uses alcohol, only on a social basis. - Family history:: not pertinent. ROS: 14:00 Constitutional: Negative for fever, chills, and weight loss, Eyes: Negative for injury, klaus pain, redness, and discharge, ENT: Negative for injury, pain, and discharge, Neck: Negative for injury, pain, and swelling, Respiratory: Negative for shortness of breath, cough, wheezing, and pleuritic chest pain, Abdomen/GI: Negative for abdominal pain, nausea, vomiting, diarrhea, and constipation, Back: Negative for injury and pain, : Negative for injury, bleeding, discharge, and swelling, MS/Extremity: Negative for injury and deformity, Skin: Negative for injury, rash, and discoloration, Neuro: Negative for headache, weakness, numbness, tingling, and seizure, Psych: Negative for depression, anxiety, suicide ideation, homicidal ideation, and hallucinations, Allergy/Immunology: Negative for hives, rash, and allergies, Endocrine: Negative for neck swelling, polydipsia, polyuria, polyphagia, and marked weight changes, Hematologic/Lymphatic: Negative for swollen nodes, abnormal bleeding, and unusual bruising. 14:00 Cardiovascular: Positive for palpitations, Negative for chest pain. Exam: 14:00 Constitutional: This is a well developed, well nourished patient who is awake, alert, klaus and in no acute distress. Head/Face: Normocephalic, atraumatic. Eyes: Pupils equal round and reactive to light, extra-ocular motions intact. Lids and lashes normal. Conjunctiva and sclera are non-icteric and not injected. Cornea within normal limits. Periorbital areas with no swelling, redness, or edema. ENT: Nares patent. No nasal discharge, no septal abnormalities noted. Tympanic membranes are normal and external auditory canals are clear. Oropharynx with no redness, swelling, or masses, exudates, or evidence of obstruction, uvula midline. Mucous membranes moist. Neck: Trachea midline, no thyromegaly or masses palpated, and no cervical lymphadenopathy. Supple, full range of motion without nuchal rigidity, or vertebral point tenderness. No Meningismus. Chest/axilla: Normal chest wall appearance and motion. Nontender with no deformity. No lesions are appreciated. Respiratory: Lungs have equal breath sounds bilaterally, clear to auscultation and percussion. No rales, rhonchi or wheezes noted. No increased work of breathing, no retractions or nasal flaring. Abdomen/GI: Soft, non-tender, with normal bowel sounds. No distension or tympany. No guarding or rebound. No evidence of tenderness throughout. Back: No spinal tenderness. No costovertebral tenderness. Full range of motion. Female : Normal external genitalia. Skin: Warm, dry with normal turgor. Normal color with no rashes, no lesions, and no evidence of cellulitis. MS/ Extremity: Pulses equal, no cyanosis. Neurovascular intact. Full, normal range of motion. Neuro: Awake and alert, GCS 15, oriented to person, place, time, and situation. Cranial nerves II-XII grossly intact. Motor strength 5/5 in all extremities. Sensory grossly intact. Cerebellar exam normal. Normal gait. Psych: Awake, alert, with orientation to person, place and time. Behavior, mood, and affect are within normal limits. 14:00 Cardiovascular: Rate: tachycardic, actual rate is 154 bpm. 14:00 ECG was reviewed by the Attending Physician. 14:13 ECG was reviewed by the Attending Physician. [facility] Vital Signs: 12:09 BP 116 / 85; Pulse 151; Resp 17; Temp 98.4(TE); Pulse Ox 98% on R/A; Weight 72.57 kg tw2 (R); Height 5 ft. 6 in. (167.64 cm); 12:49 BP 125 / 94; Pulse 149; Resp 16; Pulse Ox 96% on R/A; Pain 0/10; mb8 12:53 Pulse 81; mb8 13:00 BP 115 / 8; Pulse 78; Resp 15; Pulse Ox 100% on R/A; Pain 0/10; mb8 13:50 BP 119 / 89; Pulse 76; Resp 14; Pulse Ox 97% on R/A; Pain 0/10; mb8 12:09 Body Mass Index 25.82 (72.57 kg, 167.64 cm) tw2 MDM: 12:14 Patient medically screened. [facility] 14:03 Differential diagnosis: arrythmia, dehydration. Data reviewed: vital signs, nurses [facility] notes, lab test result(s), EKG, radiologic studies, plain films. Data interpreted: felt cementer: rate is 154 beats/min, rhythm is atrial flutter, Pulse oximetry: on room air is 97 %. Test interpretation: by ED physician or midlevel provider: ECG, plain radiologic studies. Counseling: I had a detailed discussion with the patient and/or guardian regarding: the historical points, exam findings, and any diagnostic results supporting the discharge/admit diagnosis, lab results, radiology results, the need for outpatient follow up, for definitive care, a database engineer, a family practitioner. 05/28 12:16 Order name: Basic Metabolic Panel; Complete Time: 13:38 [facility] 05/28 12:16 Order name: CBC with Diff; Complete Time: 13:38 [facility] 05/28 12:16 Order name: LFT's; Complete Time: 13:38 [facility] 05/28 12:16 Order name: Magnesium; Complete Time: 13:38 05/28 12:16 Order name: NT PRO-BNP; Complete Time: 13:38 05/28 12:16 Order name: PT-INR; Complete Time: 13:38 05/28 12:16 Order name: Troponin HS; Complete Time: 13:38 05/28 12:16 Order name: XRAY Chest (1 view); Complete Time: 13:38 05/28 12:16 Order name: TSH; Complete Time: 13:38 05/28 12:16 Order name: SARS RAPID; Complete Time: 13:38 05/28 12:16 Order name: EKG; Complete Time: 12:17 05/28 12:16 Order name: Cardiac monitoring; Complete Time: 12:29 05/28 12:16 Order name: EKG - Nurse/Tech; Complete Time: 12:29 05/28 12:16 Order name: IV Saline Lock; Complete Time: 12:29 05/28 12:16 Order name: Labs collected and sent; Complete Time: 12:34 05/28 12:16 Order name: O2 Per Protocol; Complete Time: 12:29 05/28 12:16 Order name: O2 Sat Monitoring; Complete Time: 12:29 05/28 13:12 Order name: EKG - Nurse/Tech; Complete Time: 13:12 mb8 EC:00 Rate is 154 beats/min. Rhythm is regular. QRS [place] is Normal. PA interval is normal. klaus QRS interval is normal. QT interval is normal. No Q waves. No ST changes noted. Clinical impression: Atrial Flutter. Interpreted by me. Reviewed by me. 14:13 Rate is 75 beats/min. Rhythm is regular. QRS [place] is Normal. PA interval is normal. QRS klaus interval is normal. QT interval is normal. No Q waves. T waves are Normal. No ST changes noted. Clinical impression: Normal ECG and No evidence of ischemia. Interpreted by me. Reviewed by me. Administered Medications: 12:34 Drug: NS 0.9% 1000 ml Route: IV; Rate: 1 bolus; Site: left antecubital; aa5 13:12 Follow up: Response: No adverse reaction; IV Status: Completed infusion mb8 12:34 Drug: Aspirin 81 mg Route: PO; aa5 13:13 Follow up: Response: No adverse reaction mb8 12:42 Drug: Lopressor (metoprolol) 5 mg Route: IVP; Site: left antecubital; mb8 13:13 Follow up: Response: No adverse reaction; Cardiac rhythm changed mb8 12:45 Drug: Lopressor (metoprolol TARTRATE) 50 mg Route: PO; mb8 13:13 Follow up: Response: No adverse reaction mb8 12:45 Drug: Lovenox (enoxaparin) 1 mg/kg Route: Sub-Q; Site: right lower abdomen; mb8 13:13 Follow up: Response: No adverse reaction mb8 12:47 Drug: Pepcid (famotidine) 20 mg Route: IVP; Site: left antecubital; mb8 13:13 Follow up: Response: No adverse reaction mb8 14:55 Drug: Eliquis (apixaban) 5 mg Route: PO; mb8 14:55 Follow up: Response: Medication administered at discharge. mb8 Disposition Summary: 05/28/22 14:14 Discharge Ordered Location: Home klaus Problem: new klaus Symptoms: have improved klaus Condition: Stable klaus Diagnosis - Unspecified atrial flutter klaus - Unspecified atrial fibrillation - with rvr klaus Followup: klaus - With: - When: 1 - 2 days - Reason: Recheck today's complaints, Continuance of care, Re-evaluation by your physician Followup: klaus - With: - When: 2 - 3 days - Reason: Recheck today's complaints, Re-evaluation by your physician Discharge Instructions: - Discharge Summary Sheet klaus - Atrial Fibrillation klaus - Atrial Flutter klaus - Atrial Fibrillation, [id number] klaus Forms: - Medication Reconciliation Form klaus - Thank You Letter klaus - Antibiotic Education klaus - Prescription Opioid Use klaus Prescriptions: - Eliquis 5 mg Oral tablet - take 1 tablet by ORAL route 2 times per day; 60 tablet; Refills: 0, Product klaus Selection Permitted - Toprol XL 50 mg Oral Tablet - take 1 tablet by ORAL route once daily; 20 tablet; Refills: 0, Product klaus Selection Permitted - Pepcid 20 mg Oral Tablet - take 1 tablet by ORAL route every 12 hours for 21 days; 42 tablet; Refills: 0, klaus Product Selection Permitted Critical care time excluding procedures: 14:03 Critical care time: Bedside Care: 20 minutes, Consultation: 5 minutes, Family klaus Intervention: 10 minutes. Total time: 35 minutes Signatures: Dispatcher [employer] Jimmy Webb MD MD cha Calderon, Audri, RN RN aa5 Lily Lombardo RN RN tw2 Jeff Oleary RN RN mb8
[2022-05-28] MEDS ORDERED: APIXABAN 5 MG TABLET ONE (14:48)
[2022-05-28 15:01] VITALS: TEMP 98.4
[2022-05-28 15:05] VITALS: BP 119/89; O2SAT 97
--- NOTE | 2022-05-29 16:10 | EKG ---
Test Date: 2022-05-28 Test Time: 13:05:46 Casting Operator Helper: JADON MEASUREMENT RESULTS: Intervals: Rate: 75 OK: 180 QRSD: 80 QT: 390 QTc: 435 [place]: P: 68 OK: 180 QRS: 8 T: 43 INTERPRETIVE STATEMENTS: Normal sinus rhythm Possible Left atrial enlargement Borderline ECG Compared to ECG 05/28/2022 12:16:41 Atrial flutter no longer present ST (T wave) deviation no longer present Myocardial infarct finding no longer present Electronically Signed On 05-29-22 16:08:03 CDT by Anthony Omalley
--- NOTE | 2022-05-29 16:10 | EKG ---
Test Date: 2022-05-28 Test Time: 12:16:41 Merchandise Deliverer: JADON MEASUREMENT RESULTS: Intervals: Rate: 154 OK: QRSD: 72 QT: 300 QTc: 480 [place]: P: OK: QRS: 35 T: 68 INTERPRETIVE STATEMENTS: Atrial flutter with variable AV block Abnormal ECG No previous ECG available for comparison Electronically Signed On 05-29-22 16:08:36 CDT by Anthony Omalley
== END 2022-05-28 14:56 | disposition home or self-care (01) ==
LOC: ER 12:01
DX: I48.92 Unspecified atrial flutter (principal); I48.19 Other persistent atrial fibrillation; Z20.822 Contact with and (suspected) exposure to COVID-19; Z88.0 Allergy status to penicillin
CPT/HCPCS: 96361; 93005 ×2; 85025; 80048; 36415; 83735; 85610; 80076; 84443; 84484; 83880; 71045; 96375; 96372; 96374; 99285; 87811; J1650; J7030

== ENCOUNTER 2024-09-25 14:01 | Inpatient (IN) | payer OTHER ==
--- OUTSIDE RECORDS SUMMARY | 2024-09-25 14:05 | XMS REPORT | Continuity of Care Document ---
Author Name Unknown Address [address] [facility] [address] [place] [address] [facility] thconnect Address [address] [facility] [address] [place] [address] Care Team Providers Care Processing Technologist Name Role Phone Chantel Coffey Attending Clinician Unavailable Cate Davidson Attending Clinician Dominique Mancia Attending Clinician Unavail able Cate Davidson Admitting Clinician Unavaillissa hernández Physician, No Primary or Family Admitting Clinic ami Unavailable Payers Payer Name Policy Type Policy Number Effective Date Expirati on Date Source [facility] 6 [id number] 40 2017 00:00:00 [facility] Problems Condition Name Condition Details Condition Category Status Onset Date Resolution Date Last Treatment Date Treating Clinician Comments Source [id number] Seasonal allergic rhinitis due to pollen Problem [facility] Fatigue Fatigue, unspecifie d type Problem [facility] Allergic rhinitis Allergic rhinitis Problem [facility] Vitamin D deficiency Vitamin D deficiency Problem [facility] [id number] Actinic keratosis Problem [facility] [id number] Annual physical exam Problem [facility] Acute bronchitis Acute bronchitis Problem [facility] Allergies, Adverse Reactions, Alerts Allergy Name Allergy Type Status Severity Reaction(s) Onset Date Inactive Date Treating Clinician Comments Source codeine codeine Active Unknown [facility] 0 Drug allergy Active Unknown [facility] Social History Social Habit Start Date Stop Date Quantity Comments Source History of Tobacco Use [facility] Sex Assigned At [facility] Smoking Status Start Date Stop Date Source Never Smoker [facility] Medications Ordered Medication Name Filled Medication Name Start Date Stop Date Current Medication? Ordering Clinician Indication Dosage Frequency Signature (SIG) Comments Components Source Benzonatate Benzonatate 2017-08 00:00: 00 Yes Na Coffey 1 capsule [facility] Kenalog (Triamcinol one) Kenalog (Triamcinol one) 2017-08 00:00: 00 No 40mg [facility] Dexamethaso ne Dexamethaso ne 2017-08 00:00: 00 No 4mg [facility] Benzonatate 200 MG Benzonatate 200 MG 2017-08 00:00: 00 No 1{capsu le} TID Benzonatat e 200 MG Kenalog (Triamcinol one) Kenalog (Triamcinol one) 2017-08 00:00: 00 No 40mg [facility] Dexamethaso ne Dexamethaso ne 2017-08 00:00: 00 No 4mg [facility] Benzonatate 200 MG Benzonatate 200 MG 2017-08 00:00: 00 No 1{capsu le} TID Benzonatat e 200 MG Kenalog (Triamcinol one) Kenalog (Triamcinol one) 2017-08 00:00: 00 No 40mg [facility] Dexamethaso ne Dexamethaso ne 2017-08 00:00: 00 No 4mg [facility] Benzonatate 200 MG Benzonatate 200 MG 2017-08 00:00: 00 No 1{capsu le} TID Benzonatat e 200 MG Fish Oil 1000 MG Fish Oil 1000 MG No 1{capsu le} QD Fish Oil 1000 MG Ivermectin 3 MG Ivermectin 3 MG No QD Ivermectin 3 MG Claritin 5 MG Claritin 5 MG No 1{table t} Claritin 5 MG Naproxen 500 MG Naproxen 500 MG No BID Naproxen 500 MG Montelukast Sodium 10 MG Montelukast Sodium 10 MG No 1{table t} Montelukas t Sodium 10 MG Fish Oil 1000 MG Fish Oil 1000 MG No 1{capsu le} QD Fish Oil 1000 MG Medrol 4 MG Medrol 4 MG No Me drol 4 MG Medrol Medrol Yes Na Coffey 1 tablet with food or milk in the morning [facility] Multivitami n Adults 50+ Multivitami n Adults 50+ Yes Na Coffey not defined [facility] Vitamin C Vitamin C Yes Na Coffey not defined [facility] Resveratrol Ultra Resveratrol Ultra Yes Na Coffey as directed [facility] Flonase Flonase Yes Na Coffey 1 spray in each nostril [facility] Biotin Biotin Yes Na Coffey not defined [facility] Restasis Restasis Yes Na Coffey not defined [facility] Naproxen Naproxen Yes Na Coffey 1 tabl et with food or milk as needed [facility] Vitamin B12 Vitamin B12 Yes Na Coffey not defined [facility] Lysine Lysine Yes Na Coffey not defined [facility] Ubiquinol Ubiquinol Yes Na Coffey not defined [facility] Citracal Plus Citracal Plus Yes Na Coffey not defined [facility] Claritin Claritin Yes Na Coffey 1 tablet [facility] Fish Oil Fish Oil Yes Na Coffey 1 capsule [facility] Vitamin D Vitamin D Yes Na Coffey not defined [facility] Resveratrol Ultra - Resveratrol Ultra - No Resveratro l Ultra - Vitamin C Vitamin C No Vitamin C Flonase 50 MCG/ACT Flonase 50 MCG/ACT No 1{spray _in_eac h_nostr il} QD Flonase 50 MCG/ACT Xyzal Allergy 24HR 5 MG Xyzal Allergy 24HR 5 MG No 1{table t_in e_eveni ng} QD Xyzal Allergy 24HR 5 MG Ivermectin 3 MG Ivermectin 3 MG No QD Ivermectin 3 MG Citracal Plus Citracal Plus No Citracal Plus Claritin 5 MG Claritin 5 MG No 1{table t} Claritin 5 MG Naproxen 500 MG Naproxen 500 MG No BID Naproxen 500 MG Montelukast Sodium 10 MG Montelukast Sodium 10 MG No 1{table t} Montelukas t Sodium 10 MG Fish Oil 1000 MG Fish Oil 1000 MG No 1{capsu le} QD Fish Oil 1000 MG Medrol 4 MG Medrol 4 MG No Me drol 4 MG Resveratrol Ultra - Resveratrol Ultra - No Resveratro l Ultra - Flonase 50 MCG/ACT Flonase 50 MCG/ACT No 1{spray _in_eac h_nostr il} QD Flonase 50 MCG/ACT Xyzal Allergy 24HR 5 MG Xyzal Allergy 24HR 5 MG No 1{table t_in e_eveni ng} QD Xyzal Allergy 24HR 5 MG Ivermectin 3 MG Ivermectin 3 MG No QD Ivermectin 3 MG Citracal Plus Citracal Plus No Citracal Plus Claritin 5 MG Claritin 5 MG No 1{table t} Claritin 5 MG Naproxen 500 MG Naproxen 500 MG No BID Naproxen 500 MG Montelukast Sodium 10 MG Montelukast Sodium 10 MG No 1{table t} Montelukas t Sodium 10 MG Fish Oil 1000 MG Fish Oil 1000 MG No 1{capsu le} QD Fish Oil 1000 MG Medrol 4 MG Medrol 4 MG No Me drol 4 MG Resveratrol Ultra - Resveratrol Ultra - No Resveratro l Ultra - Flonase 50 MCG/ACT Flonase 50 MCG/ACT No 1{spray _in_eac h_nostr il} QD Flonase 50 MCG/ACT Xyzal Allergy 24HR 5 MG Xyzal Allergy 24HR 5 MG No 1{table t_in e_eveni ng} QD Xyzal Allergy 24HR 5 MG Claritin 5 MG Claritin 5 MG No 1{table t} Claritin 5 MG Immunizations Ordered Immunization Name Filled Immunization Name Date Status Comments Source Adacel (Tdap) Adacel (Tdap) 2018-02-04 10:06:00 Completed [facility] Adacel (Tdap) Adacel (Tdap) 2018-02-04 10:06:00 Completed [facility] Adacel (Tdap) Adacel (Tdap) Unknown Completed Co [facility] Vital Signs Vital Name Observation Time Observation Value Comments S ramace height 2022-03-06 14:00:00 66.00 [in_i] Com [facility] weight 2022-03-06 14:00:00 169.0 [lb_av] Co [facility] temperature 2022-03-06 14:00:00 98.2 [degF] Com [facility] bmi 2022-03-06 14:00:00 27.27 kg/m2 Comm on [facility] oximetry 2022-03-06 14:00:00 95 % Commo n [facility] respiratory rate 2022-03-06 14:00:00 15 /min [facility] blood pressure systolic 2022-03-06 14:00:00 128 mm[Hg] [facility] blood pressure diastolic 2022-03-06 14:00:00 64 mm[Hg] [facility] Encounters Start Date/Time End Date/Time Encounter Type Admission Type Attending Clinicians Care Facility Care Department Encounter ID Source 2021-09-07 13:17:[address] [facility] [id number] [facility] 2021-09-07 12:57:[facility] [id number] [facility] 2021-09-07 11:27:[address] [facility] [id number] [facility] 2024-03-20 08:00:00 2024-03-20 08:00:00 Outpatient Cate Correia [facility] [id number] [facility] 2023-03-08 00:00:00 2023-03-08 00:00:00 (TEL) STLMLC STLMLC [id number] [facility] 2023-03-06 10:02:00 2023-03-06 10:02:00 Outpatient Cate Correia [facility] [id number] [facility] 2022-05-30 00:00:00 2022-05-30 00:00:00 (TEL) STLMLC STLMLC [id number] [facility] 2022-03-14 00:00:00 2022-03-14 00:00:00 (TEL) STLMLC STLMLC [id number] [facility] 2022-03-06 00:00:00 2022-03-06 00:00:00 PREV VISIT EST AGE 40-64 STLMLC STLMLC [id number] [facility] 2022-03-02 08:00:00 2022-03-02 08:00:00 Outpatient Cate Correia [facility] [id number] [facility] 2021-02-18 12:00:00 2021-02-18 12:00:00 Outpatient Cate Correia [facility] [id number] [facility] 2021-02-14 00:00:00 2021-02-14 00:00:00 Outpatient STLMLC STLMLC [id number] [facility] 2021-02-01 00:00:00 2021-02-01 00:00:00 Outpatient STLMLC STLMLC [id number] [facility] 2020-12-08 00:00:00 2020-12-08 00:00:00 Outpatient STLMLC STLMLC [id number] [facility] 2020-12-06 00:00:00 2020-12-06 00:00:00 Outpatient STLMLC STL[facility]C [id number] [facility] 2020-02-02 10:20:00 2020-02-02 10:20:[address] [facility] [id number] [facility] 2020-01-26 12:00:00 2020-01-26 12:00:00 Outpatient Dominique Millard [facility] [id number] [facility] 2018-12-30 11:43:00 2018-12-30 11:43:[address] [facility] [id number] [facility] 2018-11-29 10:20:00 2018-11-29 10:20:00 [facility] [employer] [facility] [id number] [facility] 2018-10-29 10:30:00 2018-10-29 10:30:[address] [facility] [id number] [facility]
[2024-09-25] MEDS ORDERED: dilTIAZem HCL 25 MG/5 ML VIAL IV ONE (14:28)
[2024-09-25] MEDS ORDERED: NA CHLORIDE 0.9% 1,000 ML ONE (14:32)
[2024-09-25 14:38] LABS: Absolute Basophils 0.1 K/uL (0-0.5); Absolute Eosinophils 0.1 K/uL (0-0.5); Absolute Monocytes 0.7 K/uL (0.1-1.3); Absolute Neutrophil 6.3 K/uL (1.8-8.0); Eosinophils % 1.3 % (0-4.4); Hemoglobin 15.4 g/dL (12.0-15.0); Lymphocytes % 21.4 % (15.3-44.8); MCH 30.9 pg (27.0-35.0); MCHC 34.2 g/dL (32.0-36.0); MCV 90.4 fL (80-100); MPV 9.7 fL (7.6-11.3); Monocytes % 7.8 % (3.3-12.3); Neutrophils % 68.5 % (41.7-73.7); Nucleated Red Blood Cells % 0.1 % (0-0); PT Prothrombin Time 12.9 SECONDS (9.4-12.5); Platelets 299 thou/uL (152-406); Protime INR 1.23; RBC Red Blood Cell Count 4.98 M/uL (3.86-4.86); Red Cell Distribution Width 13.6 % (12.1-15.2)
[2024-09-25 14:56] LABS: Anion Gap 9.9 mEq/L (5.0-15.0); Potassium 3.9 mEq/L (3.5-5.1); Thyroid Stimulating Hormone 2.15 uIU/mL (0.358-3.740)
--- NOTE | 2024-09-25 15:36 | EDPHYS ---
Physician Documentation [facility] Name: Ruth Ann Steve Age: 64 yrs Sex: Female : 1960 Arrival Date: 09/25/2024 Time: 14:01 Bed 14 Private MD: ED Physician Richard Pak HPI: 09/25 14:27 This 64 yrs old Female presents to ER via Ambulatory with complaints of High ec2 heart rate. 14:27 Patient arrives today for evaluation of palpitations. Reports that she felt unwell ec2 earlier today. Patient reports no shortness of breath or chest pain. Reports history of A-fib, states that she felt similar last time she was in A-fib. Denies any leg swelling, no fevers, no nausea, no vomiting.. Historical: - Allergies: 14:09 PENICILLINS; ll1 - Home Meds: 14:10 Metoprolol Tartrate Oral 1 tab once [Active]; Eliquis oral 2 times per day [Active]; ll1 - PMHx: 14:09 gastritis; ll1 14:10 A fib; ll1 - PSHx: 14:09 section; ll1 - Immunization history:: Adult Immunizations up to date. - Infectious Disease History:: Denies. - Social history:: Smoking status: Patient denies any tobacco usage or history of. ROS: 14:28 Constitutional: as per hpi ec2 Exam: 14:28 Constitutional: GEN: NAD Head: atraumatic Eyes: EOMI Ears: External ears are ec2 normal. CV: Tachycardia LUNGS: no respiratory distress ABD: non-distended SKIN: no evidence of rashes MSK: no evidence of trauma Vital Signs: 14:10 BP 124 / 96; Pulse 153; Resp 17; Pulse Ox 96% ; ll1 14:40 BP 97 / 62; Pulse 107; Resp 18; Pulse Ox 98% on R/A; iw 14:52 BP 106 / 63; Pulse 112; Resp 16; Pulse Ox 97% on R/A; iw MDM: 14:05 Medical Screening Exam initiated ec2 14:28 Data reviewed: vital signs, nurses notes. ED course: Patient arrives today for ec2 evaluation of palpitations. Examination yields tachycardia. EKG independently reviewed and interpreted by me, shows rate of 154, suspect atrial flutter with [address] segment elevations, intervals are nonactionable.. 15:06 ED course: Patient received 10 mg of diltiazem. On repeat examination patient with ec2 improvement in tachycardia. Repeat EKG independently reviewed and interpreted by me, shows atrial flutter with a rate of 81 with 4:1 conduction block.. 15:15 ED course: Patient with recurrence of RVR with rates in the 110s. Will g start the ec2 patient on amiodarone gtt. given borderline pressures.. 09/25 14:11 Order name: Basic Metabolic Panel; Complete Time: 15:08 ec2 09/25 14:11 Order name: CBC with Diff; Complete Time: 14:53 ec2 09/25 14:11 Order name: NT PRO-BNP; Complete Time: 15:08 ec2 09/25 14:11 Order name: PT-INR; Complete Time: 14:53 ec2 09/25 14:11 Order name: Troponin HS; Complete Time: 15:08 ec2 09/25 14:11 Order name: TSH; Complete Time: 15:08 ec2 09/25 14:11 Order name: T4 Free; Complete Time: 15:08 ec2 09/25 15:49 Order name: CBC with Automated Diff EDMS 09/25 15:49 Order name: CBC with Automated Diff EDMS 09/25 15:49 Order name: Comprehensive Metabolic Panel EDAR 09/25 15:49 Order name: Comprehensive Metabolic Panel EDAR 09/25 14:11 Order name: XRAY Chest (1 view); Complete Time: 16:42 ec2 09/25 15:49 Order name: CONS Physician Consult EDAR 09/25 14:11 Order name: Cardiac monitoring; Complete Time: 14:25 ec2 09/25 14:11 Order name: EKG - Nurse/Tech; Complete Time: 14:25 ec2 09/25 14:11 Order name: IV Saline Lock; Complete Time: 14:25 ec2 09/25 14:11 Order name: Labs collected and sent; Complete Time: 14:25 ec2 09/25 14:11 Order name: O2 Per Protocol; Complete Time: 14:25 ec2 09/25 14:11 Order name: O2 Sat Monitoring; Complete Time: 14:25 ec2 09/25 14:46 Order name: EKG - Nurse/Tech; Complete Time: 15:17 ec2 Administered Medications: 14:38 Drug: Diltiazem IVP 10 mg IVP once; Over 2 minutes Route: IVP; Site: right antecubital; iw 14:38 Drug: NS 0.9% IV 1000 ml IV at 1000 ml once; to be given as a bolus over 60 minutes iw Route: IV; Rate: 1000 ml; Site: right antecubital; 15:45 Follow up: IV Status: Completed infusion iw 15:29 Not Given (Physician Discretion): diltiazem 5 mg/hr IV at calculated rate See iw Administration Instructions; (standard dilution 125 mg diltiazem mixed in 125 mL NS; final concentration 1mg/mL). Recommended max rate 15 mg/hr; Titrate 5 mg/hr as often as every 15 minutes to acheive goal (see titration policy); Goal parameter HR less than 100 bpm 15:29 CANCELLED (Physician Discretion): [id number] mg IVP once; Over 2 minutes ec2 15:56 Drug: amiodarone IVPB 900 mg, D5W IV 500 ml IVPB at 1 mg/min continuous; for 6 hrs, iw then change to 0.5 mg/min Route: IVPB; Rate: 1 mg/min; Site: right antecubital; 18:00 Follow up: IV Status: Infusion continued upon admission iw Disposition Summary: 09/25/24 15:35 Hospitalization Ordered Notes: Hospitalization Status: Inpatient Admission ec2 [facility] ec2 Condition: Fair ec2 Problem: an acute exacerbation ec2 Symptoms: have improved ec2 Bed/Room Type: Standard ec2 Provider: Cody Alfaro(09/25/24 15:37) ec2 Room Assignment: [facility](09/25/24 16:39) ty Diagnosis - Atrial Flutter w/ rapid ventricular response ec2 Forms: - Medication Reconciliation Form ec2 - SBAR form ec2 - Leadership Thank You Letter ec2 Critical care time excluding procedures: 15:31 Critical care time: Bedside Care: 30 minutes, Consultation: 5 minutes. Total time: 35 ec2 minutes Signatures: Dispatcher [employer] Neisha Akins RN RN iw Guerita Meraz RN RN ll1 Richard Pak MD MD ec2 Bobby Mei Krystal, RN RN kj2 Corrections: (The following items were deleted from the chart) 14:12 14:12 BASIC METABOLIC PANEL+C.LAB.BRZ ordered. EDMS EDMS 14:12 14:12 CBC+H.LAB.BRZ ordered. EDMS EDMS 14:12 14:12 PROBNP+C.LAB.BRZ ordered. EDMS EDMS 14:12 14:12 PROTIME (+INR)+COAG.LAB.BRZ ordered. EDMS EDMS 14:12 14:12 Troponin High Sensitivity+C.LAB.BRZ ordered. EDMS EDMS 14:12 14:12 THYROID STIMULAT HORMONE+C.LAB.BRZ ordered. EDMS EDMS 14:12 14:12 T4 FREE+C.LAB.BRZ ordered. EDMS EDMS 14:12 14:12 Chest Single View+RAD.RAD.BRZ ordered. EDMS EDMS 15:29 15:15 Diltiazem IVP 10 mg IVP once; Over 2 minutes ordered. ec2 ec2 15:30 15:15 ED course: Patient with recurrence of RVR with rates in the 110s. Will give the ec2 patient an additional 10 mg of diltiazem, start patient on diltiazem drip. Patient with borderline pressures at 105/78.. ec2 15:37 15:35 Cierra Isabel ec2 ec2 16:39 15:35 ec2 ty
--- NOTE | 2024-09-25 15:36 | ER ---
Nurse's Notes [facility] Name: Ruth Ann Steve Age: 64 yrs Sex: Female : 1960 Arrival Date: 09/25/2024 Time: 14:01 Bed 14 Private MD: Diagnosis: Atrial Flutter w/ rapid ventricular response Presentation: 09/25 14:10 Chief complaint: Patient states: [place] "off" today, Checked her watch and it said her HR ll1 was 155. Dr. Omalley told her to come in and get checked. Coronavirus screen: Client denies travel out of the [place] in the last 14 days. At this time, the client does not indicate any symptoms associated with coronavirus-19. Ebola Screen: Patient denies travel to an Ebola-affected area in the 21 days before illness onset. 14:10 Method Of Arrival: Ambulatory ll1 14:12 Initial Sepsis Screen: Does the patient meet any 2 criteria? No. Patient's initial ll1 sepsis screen is negative. Does the patient have a suspected source of infection? No. Patient's initial sepsis screen is negative. Risk Assessment: Do you want to hurt yourself or someone else? Patient reports no desire to harm self or others. Onset of symptoms was September 25, 2024. 14:12 Acuity: MARLEE 2 ll1 Triage Assessment: 17:45 General: Appears in no apparent distress. Pain: Denies pain. kj2 Historical: - Allergies: 14:09 PENICILLINS; ll1 - Home Meds: 14:10 Metoprolol Tartrate Oral 1 tab once [Active]; Eliquis oral 2 times per day [Active]; ll1 - PMHx: 14:09 gastritis; ll1 14:10 A fib; ll1 - PSHx: 14:09 section; ll1 - Immunization history:: Adult Immunizations up to date. - Infectious Disease History:: Denies. - Social history:: Smoking status: Patient denies any tobacco usage or history of. Screenin:53 [facility] ED Fall Risk Assessment (Adult) History of falling in the last 3 months, iw including since admission No falls in past 3 months (0 pts) Confusion or Disorientation No (0 pts) Intoxicated or Sedated No (0 pts) Impaired Gait No (0 pts) Mobility Assist Device Used No (0 pt) Altered Elimination No (0 pt) Score/Fall Risk Level 0 - 2 = Low Risk Oriented to surroundings, Maintained a safe environment. Abuse screen: Denies threats or abuse. Nutritional screening: No deficits noted. Tuberculosis screening: No symptoms or risk factors identified. Assessment: 14:39 General: Appears in no apparent distress. Behavior is calm, cooperative. Neuro: Level iw of Consciousness is awake, alert, obeys commands, Oriented to person, place, time, situation, Moves all extremities. Cardiovascular: Reports palpitations, shortness of breath, Patient's skin is warm and dry. Rhythm is atrial fibrillation with rapid ventricular response. Respiratory: Respiratory effort is even, unlabored. 16:00 Reassessment: Patient appears in no apparent distress at this time. Patient and/or iw family updated on plan of care and expected duration. Pain level reassessed. Patient is alert, oriented x 3, equal unlabored respirations, skin warm/dry/pink. Vital Signs: 14:10 BP 124 / 96; Pulse 153; Resp 17; Pulse Ox 96% ; ll1 14:40 BP 97 / 62; Pulse 107; Resp 18; Pulse Ox 98% on R/A; iw 14:52 BP 106 / 63; Pulse 112; Resp 16; Pulse Ox 97% on R/A; iw ED Course: 14:03 Patient arrived in ED. mr 14:05 Richard Pak MD is Attending Physician. ec2 14:09 Arm band placed on Patient placed in an exam room, on a stretcher. ll1 14:12 Triage completed. ll1 14:25 Initial lab(s) drawn, by me, sent to lab. Inserted saline lock: 20 gauge in right iw antecubital area, using aseptic technique. Blood collected. Flushed with 10 mL NS. 14:45 XRAY Chest (1 view) In Process Unspecified. EDMS 14:53 Patient has correct armband on for positive identification. Provided Education on: iw medication . Client placed on continuous cardiac and pulse oximetry monitoring. NIBP monitoring applied. chemical waste management technician on. 15:29 Neisha Morton, HERBIE is Primary Nurse. iw 15:34 Cierra Isabel is Hospitalizing Provider. ec2 15:37 Cody Alfaro MD is Hospitalizing Provider. ec2 17:00 No provider procedures requiring assistance completed. kj2 17:45 Patient admitted, IV remains in place. kj2 Administered Medications: 14:38 Drug: Diltiazem IVP 10 mg IVP once; Over 2 minutes Route: IVP; Site: right antecubital; iw 14:38 Drug: NS 0.9% IV 1000 ml IV at 1000 ml once; to be given as a bolus over 60 minutes iw Route: IV; Rate: 1000 ml; Site: right antecubital; 15:45 Follow up: IV Status: Completed infusion iw 15:29 Not Given (Physician Discretion): diltiazem 5 mg/hr IV at calculated rate See iw Administration Instructions; (standard dilution 125 mg diltiazem mixed in 125 mL NS; final concentration 1mg/mL). Recommended max rate 15 mg/hr; Titrate 5 mg/hr as often as every 15 minutes to acheive goal (see titration policy); Goal parameter HR less than 100 bpm 15:29 CANCELLED (Physician Discretion): [id number] mg IVP once; Over 2 minutes ec2 15:56 Drug: amiodarone IVPB 900 mg, D5W IV 500 ml IVPB at 1 mg/min continuous; for 6 hrs, iw then change to 0.5 mg/min Route: IVPB; Rate: 1 mg/min; Site: right antecubital; 18:00 Follow up: IV Status: Infusion continued upon admission iw Medication: 15:30 VIS not applicable for this client. kj2 Outcome: 15:35 Decision to Hospitalize by Provider. ec2 17:27 Patient left the ED. ll1 17:45 Admitted to Med/surg accompanied by tech, kj2 17:45 Condition: stable 17:45 Instructed on the need for admit, Signatures: Dispatcher [employer] Juliann Stanford, Reg Reg Neisha Morton RN RN iw Guerita Meraz RN RN ll1 Richard Pak MD MD ec2 Jeanine Coffey RN RN kj2
[2024-09-25] MEDS ORDERED: ONDANSETRON 4 MG/2 ML VIAL IV PRN (15:45)
[2024-09-25] MEDS: AMIODARONE HCL 900 MG in Dextrose 5%-Water 482 ML IV SCH (16:00)
--- NOTE | 2024-09-25 16:15 | RAD REPORT ---
EXAMINATION: ONE VIEW CHEST XR CLINICAL INDICATION: Female, 64 years old.,PALPITATIONS TECHNIQUE: Frontal chest projection is submitted. Examination is limited by patient positioning and t echnique. COMPARISON: 05/28/2022 FINDINGS: The lungs are well inflated and clear. No pneumothorax or sizable effusion. The heart is normal in s ize. Mediastinal contours are unremarkable. IMPRESSION: No acute intrathoracic abnormalities.
[2024-09-25 17:45] VITALS: O2SAT 97
[2024-09-25 18:16] VITALS: BMI 27.4
[2024-09-25] MEDS: SOTALOL HCL 80 MG TAB PO SCH (18:31)
[2024-09-25] MEDS: APIXABAN 5 MG TABLET PO SCH (20:50)
--- NOTE | 2024-09-25 22:10 | CON ---
Date of Consultation: 09/25/2024 Reason For Consultation: Atrial flutter with rapid ventricular response. History Of Present Illness: 64-year-old female, well known to me, diagnosed with atrial fibrillation last year, started on metoprolol and Eliquis. She was doing well and suddenly she started feeling a bnormal, and looked at her watch and it told her this heart rate was in the 150s. She was very light headed, short of breath. Denies having any chest pain, nausea, vomiting, diarrhea, so she presented to the emergency room. She was in atrial fibrillation/flutter with rapid ventricular response, heart rate in the 150s. They started her on amiodarone. After the bolus, she converted to sinus rhythm. She has been in sinus rhythm since and she is feeling better. Past Medical History: As outlined above in the HPI. Medications: Refer reconciliation sheet for detailed list. Allergies: PENICILLIN. Family History: No premature coronary artery disease or cancer. Social History: She does not smoke or drink. Does not use any drugs. Review of Systems: All systems reviewed and are negative except as mentioned in HPI. Physical Examination: Vital Signs: Reviewed. Head and Neck: Pupils are equal, reactive to light. Intact eye movements. No JVD. No cervical lym phadenopathy. Neck is supple. Thyroid is not enlarged. Lungs: Clear to auscultation bilaterally. No rhonchi, wheezing, crackles. No accessory muscle use. Heart: Regular rate and rhythm. No extra sounds. Abdomen: Soft, nontender. Bowel sounds positive. No organomegaly. No masses or hernia. No rigidi ty or rebound. Extremities: No edema, clubbing, cyanosis. Intact pulses. Skin: No rash. No nodule. Neurologic: Alert, awake, oriented x3. No acute focal deficits appreciated. Investigations: BUN is 20, creatinine 0.82. NT-proBNP is 3769. Hemoglobin is 15.4. Assessment/recommendation: 1. Atrial fibrillation with rapid ventricular response. Converted to sinus rhythm on amiodarone. Di hajaontinue amiodarone. She is very young to take it on a long-term basis and start her on sotalol 80 mg twice a day, and resume Eliquis 5 mg twice a day. After the third dose of sotalol tomorrow, if QT c interval is still normal, she can be released on sotalol and Eliquis. We will discontinue metoprol ol. 2. Elevated NT-proBNP and that could be due to diastolic congestive heart failure. She had recent ec ho done in the office. We will follow her up on an outpatient basis. In the interim, low-salt diet. She does not have any signs of fluid overload. 3. Mild dehydration. She received 1 L of fluids. Repeat her labs tomorrow. SR/MODL Voice ID: [id number] Report ID: [id number]
[2024-09-26 07:09] LABS: Absolute Eosinophils 0.2 K/uL (0-0.5); Absolute Lymphocytes (CBC) 1.7 K/uL (0.7-4.9); Absolute Monocytes 0.5 K/uL (0.1-1.3); Basophils % 0.9 % (0-1.3); Eosinophils % 3.7 % (0-4.4); Hematocrit 39.8 % (36.0-45.0); Hemoglobin 13.6 g/dL (12.0-15.0); Lymphocytes % 32.2 % (15.3-44.8); MCH 31.5 pg (27.0-35.0); MCHC 34.1 g/dL (32.0-36.0); MCV 92.4 fL (80-100); MPV 9.6 fL (7.6-11.3); Monocytes % 8.3 % (3.3-12.3); Neutrophils % 54.9 % (41.7-73.7); Nucleated Red Blood Cells % 0.1 % (0-0); Platelets 225 thou/uL (152-406); Red Cell Distribution Width 13.4 % (12.1-15.2)
[2024-09-26 07:40] LABS: Albumin 3.2 g/dL (3.4-5.0); Albumin/Globulin Ratio 1.1 (1.1-1.8); Bilirubin Total 0.7 mg/dL (0.2-1.0); Globulin 2.8 g/dL (2.3-3.5)
--- NOTE | 2024-09-26 12:19 | P.SSS ---
Patient History Date of Service: 09/26/24 Reason for admission: PALPITATIONS History of Present Illness: RACH HAS HAD A FIB. SHE COMES WITH A FLUTTER WITH RVR NOW. ER GAVE HER AMIODARONE AND SHE CONVERTED TO NSR. SHE IS NOW ON SOTALOL INSTEAD BY DR. MORRIS. SHE MAY GO HOME TODAY AFTER 5 IF ALL OKAY. Allergies Penicillins Allergy (Verified 12/20/19 23:21) Hives/Rash Home Medications: Biotin [Nail-Ex] 2,500 mcg PO DAILY 12/21/19 Cyanocobalamin (Vitamin B-12) [B-12] 1 tab PO BID 12/21/19 Famotidine 40 mg PO BEDTIME 12/21/19 Glucosamine/Chondr Rice A Sod [Osteo Bi-Flex Caplet] 1 tab PO BID 12/21/19 Levocetirizine Dihydrochloride [Xyzal] 5 mg PO BID 12/21/19 Lysine 500 mg PO DAILY 12/21/19 Mupirocin Oint [Bactroban 2% Ointment*] 1 appl TOP BID #1 tube 12/21/19 Olopatadine [Patanol Opth*] 1 drop EACH EYE PRN 12/21/19 Pantothenic Acid (Vit B5) [Pantothenic Acid] 500 mg PO DAILY 12/21/19 Smz./Tmp. [Bactrim Ds 800 MG/160 MG*] 1 tab PO BID #14 tab 12/21/19 Ubidecarenone [Co Q-10] 100 mg PO DAILY 12/21/19 cycloSPORINE [Restasis] 1 drop EACH EYE BID 12/21/19 - Past Medical/Surgical History Has patient received pneumonia vaccine in the past: No Diabetic: No -: gastritis -: afib -: neck surgery c6-c7 - Family History Father -: Hypertension Mother -: Heart disease, Hypertension, Cancer - Social History Smoking Status: Never smoker Alcohol use: Yes CD- Drugs: No Caffeine use: Yes Place of Residence: Home Review of Systems 10-point ROS is otherwise unremarkable Physical Examination - Vital Signs Temperature: 98 F Blood Pressure: 112/64 Pulse: 67 Respirations: 18 Pulse Ox (%): 0 - Physical Exam General: Mild distress HEENT: Atraumatic, PERRLA, Mucous membr. moist/pink, EOMI, Sclerae nonicteric Neck: Supple, 2+ carotid pulse no bruit, No LAD, Without JVD or thyroid abnormality Respiratory: Clear to auscultation bilaterally, Normal air movement Cardiovascular: Regular rate/rhythm, Normal S1 S2 Gastrointestinal: Normal bowel sounds, No tenderness Musculoskeletal: No tenderness Integumentary: No rashes Neurological: Normal gait, Normal speech, Normal strength at 5/5 x4 extr, Normal tone, Normal affect Lymphatics: No axilla or inguinal lymphadenopathy - Studies Laboratory Data (last 24 hrs) 09/25/24 09/25/24 09/25/24 14:24 14:24 14:24 WBC 9.20 Hgb 15.4 H Hct 45.0 Plt Count 299 PT 12.9 H INR 1.23 Sodium 141 Potassium 3.9 BUN 20 H Creatinine 0.82 Glucose 117 H - Diagnosis (Problem(s)) (1) Atrial flutter Current Visit: Yes Status: Acute Plan: SOTALOL 80 MGBID ELUQUIS STOP METOPROLOL. STABLE. QT CHECK AT 5 PM. - Disposition Disposition: ROUTINE DISCHARGE
--- NOTE | 2024-09-26 14:51 | P.PN ---
Subjective Date of Service: 09/26/24 Chief Complaint: PALPITATIONS Subjective: No new changes, No C/O voiced, Tolerating diet, Ambulating, Improving Review of Systems 10-point ROS is otherwise unremarkable Physical Examination - Vital Signs Temperature: 98 F Blood Pressure: 112/64 Pulse: 67 Respirations: 18 Pulse Ox (%): 0 - Physical Exam General: Alert, In no apparent distress HEENT: Atraumatic, PERRLA, EOMI Neck: Supple, JVD not distended Respiratory: Clear to auscultation bilaterally, Normal air movement Cardiovascular: Regular rate/rhythm, Normal S1 S2 Gastrointestinal: Normal bowel sounds, No tenderness Musculoskeletal: No tenderness Integumentary: No rashes Neurological: Normal speech, Normal tone, Normal affect Lymphatics: No axilla or inguinal lymphadenopathy - Studies Laboratory Data (last 24 hrs) 09/25/24 14:24 Sodium 141 Potassium 3.9 BUN 20 H Creatinine 0.82 Glucose 117 H Medications List Reviewed: Yes Assessment And Plan - Current Problems (Diagnosis) (1) Atrial flutter Current Visit: Yes Status: Acute Plan: Patient chemically cardioverted with amiodarone bolus and drip, now on Sotalol 80 mg po BID (EKG after 3rd dose) continue Eliquis 5 mg po BID
[2024-09-26 21:51] VITALS: BP 114/59; TEMP 96.9
== END 2024-09-26 21:00 | disposition home health service (06) | DRG 309 ==
LOC: ER 14:01 → ERHOLD 15:42 → 4TH 17:29
PROVIDERS: ADMIT Internal Medicine; ATTEND Internal Medicine
DX: I48.92 Unspecified atrial flutter (principal); I50.30 Unspecified diastolic (congestive) heart failure; I48.91 Unspecified atrial fibrillation; E86.0 Dehydration; Z79.01 Long term (current) use of anticoagulants; Z79.899 Other long term (current) drug therapy; Z88.0 Allergy status to penicillin
CPT/HCPCS: 36415; 71045; 80048; 80053; 83880; 84439; 84443; 84484; 85025; 85610; 93005; 96361; 96365; 96366; 96375; 99285; J0282; J7030; J7060